=== PATIENT | female | born 1965 | race Caucasian/White ===

== ENCOUNTER → 2022-12-13 14:22 | Outpatient (BNVA) | payer BC, SELFPAY | PROVIDERS: PCP Internal Medicine; Visit Provider Nurse Practitioner Family ==

== ENCOUNTER → 2023-01-18 15:25 | Outpatient (REF) | payer BC, SELFPAY ==
--- NOTE | ~2023-01-18 | CT_ITS ---
EXAMINATION: CT HEAD WITHOUT CONTRAST CLINICAL INFORMATION: Stabbing headaches. COMPARISON: None. TECHNIQUE: Contiguous axial imaging was performed from the skullbase to vertex without intravenous administration of contrast. This CT examination was performed using dose optimization techniques as appropriate, variously including the following: *Automated exposure control *Adjustment of mA and/or kV according to patient size (this includes techniques or standardized protocols for targeted exams where dose is matched to indication/reason for exam; i.e. extremities or head) *Use of iterative reconstruction technique DLP: 757 mGy-cm. FINDINGS: There is no evidence of acute intracranial hemorrhage or territorial infarction. No abnormal mass effect or midline shift is seen. Leon to white matter differentiation is well preserved. No extra-axial fluid collections are identified. The ventricles are normal in size. There is no abnormal attenuation within the brain parenchyma. The osseous structures are normal. The mastoid air cells and visualized portions of the paranasal sinuses are well aerated. There is an incompletely visualized fatty mass along the right aspect of the patient's face overlying the zygomatic bone and temporalis muscle which appears to involve the right carotid space as well, measuring up to 6.5 cm AP by 2 cm TV. Small linear wispy densities are visible within the fatty lesion; however, no solid soft tissue component is otherwise seen. CT/CT head/brain wo IV con IMPRESSION: No acute intracranial pathology. Large fatty mass in the right lateral aspect of the face which is suspected to represent a lipoma. Correlate with physical exam findings.
== END ==
LOC: HO.SL 15:25
PROVIDERS: Visit Provider Nurse Practitioner Family
DX: G47.19 Other hypersomnia (principal); G47.9 Sleep disorder, unspecified; R06.83 Snoring; G44.85 Primary stabbing headache; Z98.890 Other specified postprocedural states
CPT/HCPCS: 70450; 95806

== ENCOUNTER 2023-03-29 15:07 | Outpatient (AMB) | payer BC, SELFPAY ==
--- NOTE | 2023-03-29 15:09 | MHC.OFFVIS ---
Intake Vital Signs 03/29/23 15:10 Height 5 ft 8 in Weight 194 lb BMI 29.5 BP 132/84 Blood Pressure Location Rt brachial Position Sitting Intake Visit Reasons: 3m follow up headaches - Confirmed Intake Note: 3 month follow up. patient states My headaches were good for a long period of time but for the past 3 weeks they came back Allergies azithromycin Allergy (Unknown, Verified 03/29/23 15:12) Unknown valacyclovir Allergy (Unknown, Verified 03/29/23 15:12) Unknown Medication List - Last Reconciled 03/29/23 by ADELAIDA Diane baclofen 5 - 10 mg (1 - 2 x 5 mg) PO BEDTIME 30 days cholecalciferol (vitamin D3) PO multivitamin 1 tab PO DAILY omega 8-rll-vno-fish oil 60-90-500 mg (Fish Oil) 1 cap PO DAILY verapamil ER 100 mg PO DAILY HPI HPI Comments History of Present Illness Details 57-yr-old female presents for f/u visit. Pt denies any significant interval medical changes. Brain/head CT was unremarkable w/ exception of right zygomatic left fatty mass- likely [place] of right facial plastic surgery. CBC- NL CMP- NL w/ exception of AST 64 ESR 25 HST- c/w CAROLYN, worse in supine position, AHI 38.7/hr w/ O2 queenie 78%, average SpO2 93%. Pt reports she was having less headache attacks overall. However she started having more frequent attacks- Left-sided, temporal and top of head- sharp pains- may last 1-2 minutes but at worst 5-10 min. Now occuring about 3 per week. She does try to adjust her position/posture. Has not tried the baclofen during an attack- was worried it would make her sleepy. Not taking Ibuproefn any longer. When she does yoga and has a headache, it helps the headaches. Does about 10,000 steps throughout the day. She does endorse snoring, fragmented sleep- wakes up to void often, variable daytime sleepiness and need to take a nap. 01/18/23, CT/CT head/brain wo IV con IMPRESSION: No acute intracranial pathology. ? Large fatty mass in the right lateral aspect of the face which is suspected to represent a lipoma. Correlate with physical exam findings. [facility] Surgical History (Updated 12/13/22 @ 15:41 by ADELAIDA Diane) H/O cosmetic surgery H/O: hysterectomy Hx of breast biopsy Family History Mother Uterine cancer Hypertension Maternal Grandmother Stroke due to embolism Ovarian cyst Dementia Maternal Grandfather Diabetes Paternal Grandfather Stroke due to embolism Paternal Grandmother COPD (chronic obstructive pulmonary disease) Social History Alcohol intake: current Alcohol intake frequency: holidays/special occasions only Patient Tobacco Use Status: Never used Tobacco Review of Systems Const All systems reviewed & are unremarkable except as noted in HPI and below Physical Exam Vital Signs: Last Vital Signs BP 132/84 03/29/23 15:10 BMI result Body Mass Index 29.5 Const General: cooperative and no acute distress Orientation/consciousness: patient oriented x3 HEENT Head: Yes normocephalic Resp Effort & Inspection: normal respiratory effort and able to speak in complete sentences Neuro Other: Bilateral posterior cervical tightness. Cervical ROM: full Left Spurling: normal Right Spurling: normal. General: patient oriented x3, gait normal and CN's II-XI intact bilaterally (w/ right facial assymetry) Cognition (Neuro): normal cognition Motor exam (neuro): 5/5 motor strength present throughout Psych Appearance: grossly normal Mental Status: mental status grossly normal Speech and movement: Normal speech and movement present Affect: normal affect Attitude: cooperative Thought process: Normal thought process present Thought content: Normal thought content present Insight: Good insight present (Psych) Judgement: Good judgement present (Psych) Assessment & Plan Assessment & Plan (1) Headache: Code(s): R51.9 - Headache, unspecified (2) Cervicalgia: Code(s): M54.2 - Cervicalgia (3) Obstructive sleep apnea: Code(s): G47.33 - Obstructive sleep apnea (adult) (pediatric) Plan Reviewed head CT- unremarkable. Reviewed HST- results c/w CAROLYN, pt advised to start APAP [id number] nightly > 4 hrs. ?? For acute headache treatment: Try taking Baclofen 5-10mg qhs x's 5-7 days when headache frequency increases. Hold Ibuprofen prn. Previous acute migraine medication trials: OTC agents. Acute migraine medication contraindications: None at this time. ? For headache prevention medication: Continue Veraapmil ER 100mg qd. Continue yoga, walks. Previous migraine prevention medication trials: Amitriptyline- ineffective. Migraine prevention medication contraindications: None at this time. ? Pt to follow-up in 3-4 months or sooner prn. Coding Level of Care Code Est Pt Level 4 (15219) Diagnoses Headache R51.9 Cervicalgia M54.2 Obstructive sleep apnea G47.33
[2023-03-29 15:10] VITALS: BP 132/84; BMI 29.5
== END 2023-03-29 15:57 | disposition home or self-care (01) ==
PROVIDERS: Visit Provider Nurse Practitioner Family
DX: R51.9 Headache, unspecified (principal); M54.2 Cervicalgia; G47.33 Obstructive sleep apnea (adult) (pediatric)
CPT/HCPCS: 99214

== ENCOUNTER → 2023-03-29 15:07 | Outpatient (BNVA) | payer BC, SELFPAY | PROVIDERS: Visit Provider Nurse Practitioner Family | DX: G44.85 Primary stabbing headache (principal); I10 Essential (primary) hypertension; R51.9 Headache, unspecified; M54.2 Cervicalgia ==

== ENCOUNTER 2023-09-28 15:36 | Outpatient (AMB) | payer BC, SELFPAY ==
--- NOTE | 2023-09-28 15:37 | MHC.OFFVIS ---
Intake Intake Visit Reasons: 3m follow up headaches-Confirmed Intake Note: patient presents for follow up headaches, no changes since last time she saw you in March. Allergies azithromycin Allergy (Unknown, Verified 09/28/23 15:37) Unknown valacyclovir Allergy (Unknown, Verified 09/28/23 15:37) Unknown Medication List - Last Reconciled 09/28/23 by ADELAIDA Diane baclofen 5 - 10 mg (1 - 2 x 5 mg) PO BEDTIME 30 days cholecalciferol (vitamin D3) PO multivitamin 1 tab PO DAILY omega 2-xzw-kly-fish oil 60-90-500 mg (Fish Oil) 1 cap PO DAILY verapamil ER 100 mg PO DAILY HPI HPI Comments History of Present Illness Details 58-yr-old female presents for f/u televideo visit via [employer] Pt reports her headaches were better, but then recently returned. Once headache comes on, headache can last through the end of the day. 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 Has tried Tylenol which does not help much. Baclofen can help, if she takes at night she is able to sleep better and wakes up without a headache. She has started using CPAP, uses for at least 4 hours nightly. Her residual AHI is less than 1, per patient. She always has a green smiley face in the morning. She does not use the [employer] olayinka. Baseline headache characteristics: Moderate, Left-sided, temporal and top of head- sharp pains- may last 1-2 minutes but at worst 5-10 min. Sometimes comes form the neck and moves up into the right face and head- a dull ache. PFSH Surgical History Hx of breast biopsy H/O cosmetic surgery H/O: hysterectomy Family History Mother Uterine cancer Hypertension Maternal Grandmother Stroke due to embolism Ovarian cyst Dementia Maternal Grandfather Diabetes Paternal Grandfather Stroke due to embolism Paternal Grandmother COPD (chronic obstructive pulmonary disease) Social History Alcohol intake: current Alcohol intake frequency: holidays/special occasions only Patient Tobacco Use Status: Never used Tobacco Physical Exam Const General: cooperative and no acute distress Orientation/consciousness: patient oriented x3 Resp Effort & Inspection: normal respiratory effort and able to speak in complete sentences Neuro General: patient oriented x3 Cognition (Neuro): normal cognition Psych Appearance: grossly normal Mental Status: mental status grossly normal Speech and movement: Normal speech and movement present Affect: normal affect Attitude: cooperative Assessment & Plan Assessment & Plan (1) Headache: Code(s): R51.9 - Headache, unspecified (2) Obstructive sleep apnea: Code(s): G47.33 - Obstructive sleep apnea (adult) (pediatric) Plan Unable to access recent CPAP compliance report, we will request [facility] connect us to her account. ?? For acute headache treatment: Continue Baclofen 5-10mg qhs.. Tylenol as needed. Previous acute migraine medication trials: OTC agents. Ibuprofen prn- h/o GI ulcer. Acute migraine medication contraindications: None at this time. ? For headache prevention medication: Continue Veraapmil ER 100mg qd. Increase upper body range of motion exercises, monitor body positioning while at work. Previous migraine prevention medication trials: Amitriptyline- ineffective. Migraine prevention medication contraindications: None at this time. ? Pt to follow-up in 6 months or sooner prn. Medications: Refilled baclofen 5 - 10 mg (1 - 2 x 5 mg) PO BEDTIME 30 days 60 tabs 3RF Telehealth Telehealth Location of provider rendering services: practice address Location of patient: address on file Patient Identification confirmed using: Name, : Yes Telehealth method: video Patient verbally consented to treatment: Yes Patient verbally consented to billing insurance company: Yes Patient informed of any privacy concerns related to visit: Yes Minutes spent on Phone/Video with Pt.: 16 Coding Level of Care Code Tele Est Pt Level 4 (12185) Diagnoses Headache R51.9 Obstructive sleep apnea G47.33
== END 2023-09-28 17:00 | disposition home or self-care (01) ==
LOC: HO.HSMS 15:37
PROVIDERS: Visit Provider Nurse Practitioner Family
DX: R51.9 Headache, unspecified (principal); G47.33 Obstructive sleep apnea (adult) (pediatric)
CPT/HCPCS: 99214

== ENCOUNTER → 2023-09-28 15:36 | Outpatient (BNVA) | payer BC, SELFPAY | PROVIDERS: Visit Provider Nurse Practitioner Family | DX: G44.85 Primary stabbing headache (principal); I10 Essential (primary) hypertension; R51.9 Headache, unspecified; M54.2 Cervicalgia ==